=== PATIENT | male | born 1955 | race Caucasian/White ===

== ENCOUNTER 2017-05-05 07:32 | Day surgery (SDC) | payer OTHER ==
[~2017-05-05] VITALS: Ht 175.3 cm; Wt 99.1 kg
[~2017-05-05 07:32] MED LIST: ASPI81 PO; GEMF600T3 PO; LOVA20 PO; SODIUM CHLORIDE 0.9% 1,000 ML IV ONE; VITAD1000 PO
[2017-05-05] MEDS ORDERED: MIDAZOLAM HCL 2 MG/2 ML VIAL ONE (07:48)
[2017-05-05] MEDS ORDERED: FentaNYL CITRATE-PF 100 MCG/2 ML VIAL ONE (07:48)
[2017-05-05] MEDS ORDERED: SODIUM CHLORIDE 0.9% 1,000 ML IV ONE (07:48)
[2017-05-05] MEDS ORDERED: MethylPREDNISolone SOD SUCC 125 MG/2 ML VIAL IVP ONE (09:30)
[2017-05-05] MEDS ORDERED: MethylPREDNISolone SOD SUCC 125 MG/2 ML VIAL ONE (09:44)
[2017-05-05] MEDS ORDERED: LIDOCAINE HCL 4% 50 ML SOLUTION TP ONE (12:38)
[2017-05-05] MEDS ORDERED: LIDOCAINE HCL 2% 30 ML JELLY TP ONE (12:38)
[2017-05-05] MEDS ORDERED: BENZOCAINE 20% 50 MCG/SPRAY 57 GM TP ONE (12:38)
[2017-05-05] MEDS ORDERED: OXYGEN THERAPY IH SCH (20:00)
== END 2017-05-05 10:30 | disposition home or self-care (01) ==
LOC: SURGERY 07:32
PROVIDERS: ATTEND Internal Medicine Critical Care Medicine
DX: J38.4 Edema of larynx (principal); B37.0 Candidal stomatitis; F17.210 Nicotine dependence, cigarettes, uncomplicated; Z79.82 Long term (current) use of aspirin; Z98.890 Other specified postprocedural states
CPT/HCPCS: 31623; 31624; 71010; 87015 ×2; 87070; 87101; 87147; 87205; 87220; J2250; J2930; J3010; J7030